=== PATIENT | female | born 1960 | race African-American/Black ===

== ENCOUNTER 2022-01-05 11:23 | Outpatient (CLI) | payer OTHER | END 2022-01-05 11:24 | disposition home or self-care (01) | LOC: BICMAMMO 11:23 | PROVIDERS: ATTEND Family Medicine | DX: Z12.31 Encounter for screening mammogram for malignant neoplasm of breast (principal); Z85.89 Personal history of malignant neoplasm of other organs and systems; Z91.89 Other specified personal risk factors, not elsewhere classified; Z80.3 Family history of malignant neoplasm of breast | CPT/HCPCS: 77063; 77067 ==

== ENCOUNTER 2022-07-29 08:00 | Outpatient (CLI) | payer OTHER | END 2022-07-29 08:01 | LOC: PET 08:00 | PROVIDERS: ATTEND Internal Medicine Hematology & Oncology | DX: C90.00 Multiple myeloma not having achieved remission (principal); C79.51 Secondary malignant neoplasm of bone | CPT/HCPCS: 78816; A9552 ==

== ENCOUNTER 2022-12-06 08:52 | Day surgery (SDC) | payer OTHER ==
[2022-12-02 12:27] VITALS: BMI 38.7
[~2022-12-06 08:52] MED LIST: FLU VACC QS2022-23(6MOS UP)/PF 60 MCG/0.5 ML SYRINGE IM ONE
[2022-12-06 08:57] LABS: #Basophils 0.1 thou/uL (0.0-0.2); #Eosinphils 0.1 thou/uL (0.0-0.7); #Lymphocytes 2.7 thou/uL (1.20-3.40); #Monocytes 1.4 thou/uL (0.11-0.59); %Basophils 0.5 % (0.0-1.0); %Lymphocytes 26.5 % (21.0-51.0); %Monocytes 13.2 % (0.0-10.0); %Neutrophils 58.9 % (42.0-75.0); Hemoglobin 12.7 g/dL (12.0-16.0); Mean Corpuscular HGB CONC 32.4 g/dL (32.0-36.0); Mean Corpuscular Hemoglobin 31.7 pg (27.0-31.0); Mean Corpuscular Volume 98.1 fl (78.0-98.0); Mean Platelet Volume 9.5 fL (7.4-10.4); Platelet Count 250 10x3/uL (130-400); RBC Distribution Width 15.3 % (11.5-14.5); White Blood Cell (WBC) Count 10.2 10x3/uL (4.8-10.8)
[2022-12-06 09:15] LABS: PTT 24.7 sec (22.9-36.1); Prothrombin Time 13.5 sec (12.0-14.7)
[2022-12-06] MEDS ORDERED: Lidocaine 1% PF 5 ML VIAL ONE (09:34)
[2022-12-06] MEDS ORDERED: Sodium Bicarbonate 2.5 MEQ/5 ML VIAL ONE (09:34)
[2022-12-06] MEDS ORDERED: Fentanyl 100 MCG/2 ML VIAL ONE (09:34)
[2022-12-06] MEDS ORDERED: Midazolam HCl 2 mg/2 ml Vial ONE (09:34)
[2022-12-06 09:43] VITALS: BP 133/69; TEMP 98.8
== END 2022-12-06 12:05 | disposition home or self-care (01) ==
LOC: CT 08:52
PROVIDERS: ATTEND Internal Medicine Hematology & Oncology
PROC: 07DR3ZX Extraction of Iliac Bone Marrow, Percutaneous Approach, Diagnostic (ICD-10-PCS; principal; 2022-12-06)
DX: C90.00 Multiple myeloma not having achieved remission (principal); C79.51 Secondary malignant neoplasm of bone; I10 Essential (primary) hypertension; D63.0 Anemia in neoplastic disease; Z87.891 Personal history of nicotine dependence; Z79.82 Long term (current) use of aspirin; Z79.84 Long term (current) use of oral hypoglycemic drugs; Z79.899 Other long term (current) drug therapy
CPT/HCPCS: 20225; 77002; 85025; 85097; 85610; 85730; 88121; 88184; 88237; 88305; 88311; 88313; 88341; 88342; 88365; J2250; J3010

== ENCOUNTER 2022-12-09 05:14 | Emergency (ER) | payer OTHER ==
[2022-12-09 07:23] LABS: Anion Gap 16 mmol/L (10-20); BUN (Urea Nitrogen) 14 mg/dL (9.8-20.1); Calc. Creatinine Clearance 0 mL/min (70-130); Calcium 9.1 mg/dL (7.8-10.44); Carbon Dioxide 15 mmol/L (22-29); Chloride 111 mmol/L (98-107); Estimated GFR 68; Glucose 327 mg/dL (70-105); Potassium 3.7 mmol/L (3.5-5.1); Sodium 138 mmol/L (136-145)
[2022-12-09 07:49] LABS: Actual Bicarbonate (HCO3v) 15 mEq/L (22-28); Calcium, Ionized (venous) 1.08 mmol/L (1.16-1.32); Chloride (VBG) 110 mmol/L (98-106); Hemoglobin (Hb) 11.8 g/dL (11.7-16.0); Potassium (VBG) 3.55 mmol/L (3.70-5.30); pH (venous) 7.46 (7.32-7.43)
== END 2022-12-09 08:27 | disposition home or self-care (01) ==
LOC: ERS 05:14
DX: E11.65 Type 2 diabetes mellitus with hyperglycemia (principal); I11.0 Hypertensive heart disease with heart failure; I50.9 Heart failure, unspecified; F17.210 Nicotine dependence, cigarettes, uncomplicated
CPT/HCPCS: 36415; 36416; 82010; 82805; 93005